=== PATIENT | male | born 1990 | race Hispanic/Latino ===

== ENCOUNTER 2020-05-09 07:09 | Emergency (ER) | payer OTHER ==
[2020-05-09] MEDS ORDERED: Fentanyl 100 MCG/2 ML VIAL ONE (07:12)
[2020-05-09] MEDS ORDERED: Ketorolac Tromethamine 30 MG/ML VIAL ONE (07:23)
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
[2020-05-09 07:48] LABS: Acetaminophen Less than 6.0 mcg/mL (10.0-30.0); Alcohol Less than 10 mg/dL (Less than 10); Salicylate Less than 8.0 mg/dL (15.0-30.0)
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
[2020-05-09 07:51] LABS: #Basophils 0.1 thou/uL (0.0-0.2); #Eosinphils 0.4 thou/uL (0.0-0.7); #Lymphocytes 2.9 thou/uL (1.20-3.40); #Monocytes 0.5 thou/uL (0.11-0.59); #Neutrophils 3.1 thou/uL (1.40-6.50); %Basophils 0.9 % (0.0-1.0); %Eosinophils 5.9 % (0.0-10.0); %Lymphocytes 41.5 % (21.0-51.0); %Monocytes 7.4 % (0.0-10.0); %Neutrophils 44.4 % (42.0-75.0); Hemoglobin 16.6 g/dL (14.0-18.0); Mean Corpuscular HGB CONC 34.8 g/dL (32.0-36.0); Mean Corpuscular Hemoglobin 32.2 pg (27.0-31.0); Mean Corpuscular Volume 92.5 fL (78.0-98.0); Mean Platelet Volume 7.2 fL (7.4-10.4); Platelet Count 320 thou/uL (130-400); RBC Distribution Width 10.8 % (11.5-14.5); Red Blood Cell (RBC) Count 5.14 mill/uL (4.70-6.10)
[2020-05-09 07:54] LABS: ALT (SGPT) 21 U/L (8-55); AST (SGOT) 26 U/L (5-34); Albumin 4.8 g/dL (3.5-5.0); Alkaline Phosphatase 99 U/L (40-110); Anion Gap 21 mmol/L (10-20); BUN (Urea Nitrogen) 12 mg/dL (8.9-20.6); Bilirubin, Total 1.2 mg/dL (0.2-1.2); Calc. Creatinine Clearance 0 mL/min (70-130); Calcium 9.2 mg/dL (7.8-10.44); Carbon Dioxide 17 mmol/L (22-29); Chloride 103 mmol/L (98-107); Globulin 3.1 g/dL (2.4-3.5); Glucose 134 mg/dL (70-105); Lipase 33 U/L (8-78); Potassium 3.9 mmol/L (3.5-5.1); Protein, Total 7.9 g/dL (6.0-8.3); Sodium 137 mmol/L (136-145)
[2020-05-09] MEDS ORDERED: Boostrix 0.5 ML (Tdap) VIAL ONE (08:03)
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
--- NOTE | 2020-05-09 08:31 | RAD ---
Left hand 3 views HISTORY: Injury. FINDINGS: A lobular, somewhat dystrophic appearing 0.4 cm ossification immediately lateral to the bas e of the proximal phalanx little finger may represent an old ununited ossific avulsion. There is subtle widening of the lateral aspect of the first carpometacarpal joint with subtle lateral angulation. No fracture fragments. IMPRESSION : Subtle abnormality involving the first carpometacarpal joint as detailed above, possibly reactive rep resenting ligamentous injury (gamekeeper's thumb).
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
--- NOTE | 2020-05-09 08:37 | RAD ---
Left humerus 2 views HISTORY: Injury. FINDINGS: Humerus is intact. No acute fracture or dislocation. No radiopaque foreign bodies. IMPRESSION : No abnormalities are demonstrated.
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
--- NOTE | 2020-05-09 08:47 | RAD ---
Left femur 2 views HISTORY: Injury. FINDINGS: Humerus is intact. No acute fracture or dislocation. Contrast within the urinary bladder fr om recent CT scan. IMPRESSION : No abnormalities are demonstrated.
--- NOTE | 2020-05-09 08:47 | RAD ---
Left ankle 4 views HISTORY: Injury. FINDINGS: Talar dome is intact. There is very subtle widening of the medial aspect of the tibiotalar joint, although the far lateral margin of the ankle mortise is intact. No fracture fragments are apparent. IMPRESSION : Subtle widening of the lateral joint space, suggesting ligamentous injury. No fractures evident.
[2020-05-09 09:59] LABS: Bacteria/HPF None Seen HPF (None Seen); Bilirubin Negative (Negative); Blood, Urine 1+ (Negative); Clarity Clear (Clear); Glucose, Urine (Dipstick) Normal (Negative); Ketone, Urine Trace mg/dL (Negative); Leukocyte Negative Leu/uL (Negative); Nitrite Negative (Negative); Protein, Urine (Dipstick) 50 mg/dL (Neg-Trace); Squamous Epithelial 0-3 HPF (0-3); Urobilinogen Normal mg/dL (Less than 2); WBC/HPF 0-3 HPF (0-3)
[2020-05-09 10:01] LABS: Specific Gravity, Urine Greater than 1.060 (1.002-1.036)
[2020-05-09 10:06] LABS: Amphetamine Not Detected (NotDetected); Barbiturates Screen Not Detected (NotDetected); Benzodiazepine Screen Not Detected (NotDetected); Cocaine Metabolite Screen Not Detected (NotDetected); Medtox Control Line Valid? VALID (VALID); Medtox Reader # READER 4; Methadone Not Detected (NotDetected); Methamphetamine Not Detected (NotDetected); Opiate Screen Not Detected (NotDetected); Oxycodone Screen Not Detected (NotDetected); Phencyclidine (PCP) Not Detected (NotDetected); THC/Cannabinoid Screen Not Detected (NotDetected); Tricyclic Screen Not Detected (NotDetected)
[2020-05-09 10:38] LABS: Lactic Acid 1.2 mmol/L (0.5-2.2)
--- NOTE | 2020-05-13 11:07 | RAD ---
EXAM: XR Ankle Lt 3 View STANDARD PROVIDED CLINICAL HISTORY: Pain FINDINGS: There is no evidence for fracture or other acute osseous abnormality. Alignment appears anatomic. Mignon nt spaces appear preserved. IMPRESSION: No evidence for an acute osseous abnormality. If there is persistent clinical concern, conservative m anagement and follow-up imaging advised.
== END 2020-05-09 11:21 | disposition home or self-care (01) ==
LOC: ERS 07:09
DX: S82.832A Other fracture of upper and lower end of left fibula, initial encounter for closed fracture (principal); F17.210 Nicotine dependence, cigarettes, uncomplicated; V43.52XA Car driver injured in collision with other type car in traffic accident, initial encounter
CPT/HCPCS: 29125; 36415; 70450; 71045; 71260; 72125; 74177; 80053; 80306; 80307; 81003; 81015; 83605; 83690; 84484; 85025; 90715; 93005; 96374; 96375; G0390; J1885; J3010

== ENCOUNTER 2021-11-14 16:57 | Emergency (ER) | payer SELFPAY | END 2021-11-14 17:37 | LOC: ERS 16:57 | DX: Z02.89 Encounter for other administrative examinations (principal) | CPT/HCPCS: 99283 ==